=== PATIENT | female | born 1955 | race Caucasian/White ===

== ENCOUNTER → 2018-04-09 | Outpatient (CLI) | payer OTHER ==
[~2018-04-09] MED LIST: IOPAMIDOL (ISOVUE 370) 100 ML BTL IV ONE
== END ==
LOC: FIMAGING 11:58
PROVIDERS: ATTEND Internal Medicine Cardiovascular Disease
DX: I25.10 Atherosclerotic heart disease of native coronary artery without angina pectoris (principal)
CPT/HCPCS: Q9967

== ENCOUNTER 2018-04-26 07:44 | Day surgery (SDC) | payer OTHER ==
[2018-04-26] MEDS ORDERED: DIAZEPAM 5 MG TAB PO ONE (07:46)
[2018-04-26] MEDS ORDERED: ASPIRIN EC 325 MG TAB PO ONE ×2 (07:46→08:16)
[2018-04-26] MEDS ORDERED: NS 1,000 ML IV ONE (07:46)
[2018-04-26] MEDS ORDERED: FAMOTIDINE 20 MG TAB PO ONE (07:46)
[2018-04-26] MEDS ORDERED: diphenhydrAMINE 25 MG CAP PO ONE (07:46)
[2018-04-26] MEDS ORDERED: FAMOTIDINE 20 MG TAB ONE (08:16)
[2018-04-26] MEDS ORDERED: DIAZEPAM 5 MG TAB ONE (08:17)
[2018-04-26 08:25] LABS: PLATELET COUNT 196 10^3/uL (150-400)
[2018-04-26 08:33] LABS: INR 1.02 (0.83-1.16); PROTIME(PATIENT) 13.6 SEC (12.0-15.0)
[2018-04-26] MEDS ORDERED: MIDAZOLAM 2 MG/2 ML VIAL ONE (09:22)
[2018-04-26] MEDS ORDERED: fentaNYL 100 MCG/2 ML INJ ONE (09:22)
[2018-04-26] MEDS ORDERED: LIDOCAINE 1% 300 MG/30 ML SDV ONE (09:22)
[2018-04-26] MEDS ORDERED: IOPAMIDOL (ISOVUE-370) 150 ML BTL IV ONE (09:23)
--- NOTE | 2018-04-26 10:25 | PDCARPN ---
Cardiology Progress Note Chief Complaint: CP Assessment/Plan: Assessment: atypical CP CTA- 40-50% LAD disease abnormal ECG stress Plan: 04/26/18 10:21 I have had a long discussion with both patient and her . She would like to avoid any new radiation procedures if possible and wanted to know if there was any other way to assess her CAD w/o cath. We discussed CTA FFR but that studies are still ongoing with this technology and that it was not readily available to us at this medical center. Karyn indicated she would prefer to hold off on any procedure at this time and would like to wait to get the CTA FFR results first. She understands this is not currently the gold-standard for the treatment of CAD. I have asked her to refrain from any heavy exercise until we have the results and to remain on her ASA and statin daily. She will f/u with Dr. Falcon after her results are known. Subjective: feels well currently Reviewed/Discussed With: multidisciplinary team Time Spent with Patient: greater than 25 minutes Time Spent with Patient: Greater than 25 minutes spent on this patients care, greater than 50% of time spent counseling, educating, and coordinating care regarding the above mentioned plan. Objective: no acute issues Result Diagrams: 04/26/18 08:12 04/26/18 08:12 - Physical Exam Constitutional: healthy appearing Eyes: PERRL Ears, Nose, Mouth, Throat: moist mucous membranes Cardiovascular: regular rate and rhythm Peripheral Pulses: 1+: femoral (R), femoral (L) Respiratory: clear to auscultate bilat Gastrointestinal: normoactive bowel sounds Genitourinary: no suprapubic tenderness Skin: no rashes Musculoskeletal: no muscular tenderness Neurologic: AAOx3 Psychiatric: cooperative ICD10 Worksheet Patient Problems: Problems Problem Status Onset CAD (coronary artery disease) Acute - ICD10 Problem Qualifiers (1) CAD (coronary artery disease) Qualifiers: Coronary Disease-Associated Artery/Lesion type: cahto artery Associated angina: with stable angina
--- NOTE | 2018-04-27 10:18 | CPEKG ---
Test Reason : OPEN Blood Pressure : / mmHG Vent. Rate : 075 BPM Atrial Rate : 075 BPM P-R Int : 129 ms QRS Dur : 088 ms QT Int : 425 ms P-R-T Axes : 082 073 055 degrees QTc Int : 475 ms Sinus rhythm Minimal ST depression, diffuse leads Confirmed by Catalino Uriostegui ([id number]) on 04/27/2018 10:18:09 AM Referred By: Confirmed By:Catalino Uriostegui
== END 2018-04-26 10:00 | disposition home or self-care (01) ==
LOC: FCATH 07:44
PROVIDERS: ATTEND Internal Medicine Cardiovascular Disease
DX: I25.119 Atherosclerotic heart disease of native coronary artery with unspecified angina pectoris (principal)
CPT/HCPCS: J1644; J2250; J3010; Q9967